=== PATIENT | female | born 1935 | race Caucasian/White ===

== ENCOUNTER → 2022-02-09 | Outpatient (REF) | payer MEDICARE | LOC: M SFHCDERM 14:17 | PROVIDERS: ATTEND Nurse Practitioner Family | DX: C44.319 Basal cell carcinoma of skin of other parts of face (principal); L82.1 Other seborrheic keratosis ==

== ENCOUNTER → 2024-08-22 | Outpatient (REF) | payer MEDICARE | LOC: M SFHCDERM 16:40 | PROVIDERS: ATTEND Nurse Practitioner Family | DX: L57.0 Actinic keratosis (principal) ==

== ENCOUNTER → 2025-08-05 | Outpatient (REF) | payer MEDICARE | LOC: M SFHCDERM 13:15 | PROVIDERS: ATTEND Nurse Practitioner Family | DX: L57.0 Actinic keratosis (principal) ==